=== PATIENT | female | born 1990 | race Caucasian/White ===

== ENCOUNTER 2016-04-21 11:29 | Emergency (ER) | payer MEDICAID ==
[2016-04-21] MEDS ORDERED: DEXAMETHASONE 10 MG/ML VIAL PO STA (13:18)
[2016-04-21] MEDS ORDERED: DIPHENOX/ATROPINE 2.5/0.025 MG TABLET PO STA (13:18)
[2016-04-21] MEDS ORDERED: ONDANSETRON ODT 4 MG TABLET TL STA (13:18)
[2016-04-21] MEDS ORDERED: ACETAMINOPHEN 325 MG TABLET PO STA (13:20)
[2016-04-21] MEDS ORDERED: DIPHENOX/ATROPINE 2.5/0.025 MG TABLET PO ONE (14:02)
[2016-04-21] MEDS ORDERED: ONDANSETRON ODT 4 MG TABLET ONE (14:02)
[2016-04-21] MEDS ORDERED: CHERRY SYRUP 10 ML UDC PO ONE (14:02)
[2016-04-21] MEDS ORDERED: ACETAMINOPHEN 325 MG TABLET PO ONE (14:02)
[2016-04-21] MEDS ORDERED: DEXAMETHASONE 10 MG/ML VIAL ONE (14:02)
== END 2016-04-21 14:28 | disposition home or self-care (01) ==
DX: J18.0 Bronchopneumonia, unspecified organism (principal); J45.909 Unspecified asthma, uncomplicated; F17.200 Nicotine dependence, unspecified, uncomplicated; N92.0 Excessive and frequent menstruation with regular cycle
CPT/HCPCS: 36415; 71020; 85025; 99282; 99284; A9270; Q0162